=== PATIENT | female | born 1965 | race American Indian/Alaskan Native ===

== ENCOUNTER 2019-03-19 23:05 | Emergency (ER) | payer OTHER, SELFPAY ==
[2019-03-19] MEDS ORDERED: DIPRIVAN 10 MG/ML IV ONE (23:14)
[2019-03-19] MEDS ORDERED: TORADOL IV ONE (23:15)
--- NOTE | 2019-03-19 23:20 | Emergency Department Report ---
ED Lower Extremity HPI - General Chief Complaint: Extremity Injury, Lower Stated Complaint: DISLOCATED PATELLA Time Seen by Provider: 03/19/19 23:07 Source: patient, EMS (verbal report received from EMS.ems notes not available at time of chart dictation), RN notes reviewed Mode of arrival: Stretcher Limitations: Physical Limitation - History of Present Illness Initial Comments: This is a 53-year-old female who is not known to this provider previously, who presents to the emergency room with a spontaneous right-sided patellar dislocation. Apparently, her 14-year-old son was sitting on her leg, stood up, and accidentally pushed her right patellar out laterally. She has sharp pain, which increases with palpation, and it decreases with rest. Her last time of oral intake was at work around 7:00 PM. She denies other injuries. She denies other complaints. She indicates no contraindications to anesthesia. She does not smoke cigarettes. MD Complaint: knee injury -: Sudden Injury: Knee: Right Type of Injury: other Place: home Severity: severe Improves With: rest Worsens With: movement, palpation Context: other - Related Data Home Medications Medication Instructions Recorded Confirmed Last Taken Cholecalciferol (Vitamin D3) 1 tab PO DAILY 01/17/14 01/17/14 01/17/14 [Vitamin D3] Iron [Iron 18 MG TAB] 65 mg PO DAILY 01/17/14 01/17/14 01/17/14 Lisinopril [Zestril TAB] 1 tab PO DAILY 01/17/14 01/17/14 01/17/14 Lisinopril/Hydrochlorothiazide 1 tab PO DAILY 01/17/14 01/17/14 01/17/14 [Zestoretic 20-25 mg] Magnesium 250 mg PO DAILY 01/17/14 01/17/14 01/17/14 Ubidecarenone [Coq-10] 1 tab PO DAILY 01/17/14 01/17/14 01/17/14 Vitamin B Complex [B Complex # 1] 1 tab PO DAILY 01/17/14 01/17/14 01/17/14 amLODIPine [Norvasc] 10 mg PO DAILY 01/17/14 01/18/14 01/17/14 Previous Rx's Medication Instructions Recorded Last Taken Type hydroCHLOROthiazide 25 mg PO DAILY #30 tablet 01/18/14 Unknown Rx [Hydrochlorothiazide] predniSONE [Deltasone] 20 mg PO QDAY #4 tab 01/18/14 Unknown Rx Acetaminophen [Non-Aspirin Extra 500 mg PO Q6HR PRN #30 tablet 03/20/19 Unknown Rx Strength] Ibuprofen [Motrin] 600 mg PO Q8H PRN #30 tablet 03/20/19 Unknown Rx Allergies Allergy/AdvReac Type Severity Reaction Status Date / Time ampicillin Allergy Itching Verified 03/19/19 23:52 lisinopril AdvReac Angioedema Verified 01/17/14 17:55 ED Review of Systems ROS: Stated complaint: DISLOCATED PATELLA Other details as noted in HPI Constitutional: denies: fever Eyes: denies: eye discharge ENT: denies: epistaxis Respiratory: denies: cough Cardiovascular: denies: chest pain Musculoskeletal: arthralgia, myalgia Neurological: denies: numbness, paresthesias Psychiatric: anxiety ED Past Medical Hx - Past Medical History Hx Hypertension: Yes - Social History Smoking Status: Never Smoker Substance Use Type: None - Medications Home Medications: Home Medications Medication Instructions Recorded Confirmed Last Taken Type Cholecalciferol (Vitamin D3) 1 tab PO DAILY 01/17/14 01/17/14 01/17/14 History [Vitamin D3] Iron [Iron 18 MG TAB] 65 mg PO DAILY 01/17/14 01/17/14 01/17/14 History Lisinopril [Zestril TAB] 1 tab PO DAILY 01/17/14 01/17/14 01/17/14 History Lisinopril/Hydrochlorothiazide 1 tab PO DAILY 01/17/14 01/17/14 01/17/14 History [Zestoretic 20-25 mg] Magnesium 250 mg PO DAILY 01/17/14 01/17/14 01/17/14 History Ubidecarenone [Coq-10] 1 tab PO DAILY 01/17/14 01/17/14 01/17/14 History Vitamin B Complex [B Complex # 1] 1 tab PO DAILY 01/17/14 01/17/14 01/17/14 History amLODIPine [Norvasc] 10 mg PO DAILY 01/17/14 01/18/14 01/17/14 History hydroCHLOROthiazide 25 mg PO DAILY #30 tablet 01/18/14 Unknown Rx [Hydrochlorothiazide] predniSONE [Deltasone] 20 mg PO QDAY #4 tab 01/18/14 Unknown Rx Acetaminophen [Non-Aspirin Extra 500 mg PO Q6HR PRN #30 tablet 03/20/19 Unknown Rx Strength] Ibuprofen [Motrin] 600 mg PO Q8H PRN #30 tablet 03/20/19 Unknown Rx ED Physical Exam - General Limitations: Physical Limitation General appearance: alert, anxious, in distress, obese - Head Head exam: Present: atraumatic, normocephalic - Eye Eye exam: Present: normal appearance, EOMI. Absent: nystagmus - ENT ENT exam: Present: normal exam, normal orophraynx, mucous membranes moist, normal external ear exam - Neck Neck exam: Present: normal inspection, full ROM. Absent: tenderness, meningismus - Respiratory Respiratory exam: Present: normal lung sounds bilaterally. Absent: respiratory distress - Cardiovascular Cardiovascular Exam: Present: regular rate, normal rhythm, normal heart sounds. Absent: bradycardia, tachycardia, irregular rhythm, systolic murmur, diastolic murmur, rubs, gallop - GI/Abdominal GI/Abdominal exam: Present: soft. Absent: distended, tenderness, guarding, rebound, rigid, pulsatile mass - Extremities Exam Extremities exam: Present: full ROM (there is full range of motion in the bilateral upper extremities, and left lower extremity. The right lower extremity, hip range of motion intact, and foot range of motion/ankle range of motion intact. There is an obvious clinical lateral patellar dislocation), tenderness, other (2+ pulses noted in the bilateral upper, lower extremities. Compartments soft. No long bony tenderness. The pelvis is stable.). Absent: normal inspection - Back Exam Back exam: Present: normal inspection, full ROM. Absent: tenderness, CVA tenderness (R), CVA tenderness (L), paraspinal tenderness, vertebral tenderness - Neurological Exam Neurological exam: Present: alert, other (Extraocular movements intact. Tongue midline. No facial droop. Facial sensation intact to light touch in the V1, V2, V3 distribution bilaterally. 5 and 5 strength in 4 extremities.. Sensation is intact to light touch in 4 extremities.). Absent: motor sensory deficit - Psychiatric Psychiatric exam: Present: anxious - Skin Skin exam: Present: warm, dry, intact, normal color. Absent: rash ED Course Vital Signs 03/19/19 03/19/19 03/19/19 23:12 23:21 23:27 Temperature 99.2 F 99.2 F Temperature [ 99.2 F Intra-Procedure ] Temperature [ 99.2 F Post-Procedure] Temperature [ 99.2 F Pre-Procedure] Pulse Rate 68 78 Pulse Rate [ 69 Intra-Procedure ] Pulse Rate [ 66 Post-Procedure] Pulse Rate [Pre 67 -Procedure] Respiratory 20 20 20 Rate Respiratory 10 L Rate [Intra- Procedure] Respiratory 13 Rate [Post- Procedure] Respiratory 27 H Rate [Pre- Procedure] Blood Pressure 138/77 [Intra- Procedure] Blood Pressure 147/77 [Post-Procedure ] Blood Pressure 150/94 [Pre-Procedure] Blood Pressure 173/82 [Right] O2 Sat by Pulse 100 100 Oximetry O2 Sat by Pulse 100 Oximetry [ Intra-Procedure ] O2 Sat by Pulse 100 Oximetry [Post -Procedure] O2 Sat by Pulse 100 Oximetry [Pre- Procedure] 03/19/19 03/19/19 03/19/19 23:33 23:34 23:57 Temperature Temperature [ Intra-Procedure ] Temperature [ Post-Procedure] Temperature [ Pre-Procedure] Pulse Rate 70 Pulse Rate [ Intra-Procedure ] Pulse Rate [ Post-Procedure] Pulse Rate [Pre -Procedure] Respiratory 15 18 Rate Respiratory Rate [Intra- Procedure] Respiratory Rate [Post- Procedure] Respiratory Rate [Pre- Procedure] Blood Pressure [Intra- Procedure] Blood Pressure [Post-Procedure ] Blood Pressure [Pre-Procedure] Blood Pressure [Right] O2 Sat by Pulse 100 Oximetry O2 Sat by Pulse Oximetry [ Intra-Procedure ] O2 Sat by Pulse Oximetry [Post -Procedure] O2 Sat by Pulse Oximetry [Pre- Procedure] - Reevaluation(s) Reevaluation #1: 03/19/19 23:19 Differential diagnosis, including but not limited to: Patellar dislocation Assessment and plan: 53-year-old female with clinical patellar dislocation after her young son stood up, and inadvertently dislocated the patella. Extensive discussion had with patient. She has given verbal and written consent for moderate sedation with closed reduction of patellar fracture. She will be given ketorolac for pain. We will perform a propofol sedation. We will then obtain postprocedural x-rays, and right lower extremity knee immobilizer will be applied. Reevaluation #2: 03/19/19 23:58 Patient tolerated reduction well. Postreduction x-rays demonstrated appropriate reduction. Patient states pain is improved. Knee immobilizer is applied. Post-procedurally, the patient remains neurovascularly intact. - Moderate Sedation Indications: fracture/dislocation redu Presedation Evaluation: Please see history of present illness. Estimated time of last oral intake is 7:00 PM on 03/19/2019. ASA Class: II Mallampati Airway Score: 2 Preparation: groundwater monitoring technician applied, pulse oximeter, capnometry used, supplemental O2 applied, reversal agents at bedside, suction/airway equipment at bedside IV Propofol Dose (mgs): 100 Complications: none Patient Tolerated Procedure: well - Orthopedic Joint Reduction Joint #1 Consent Obtained: verbal consent, written consent, emergent situation Time Out Performed: Yes Side: right Joint Reduction Location: knee/patella Analgesia: moderate sedation Technique Used: direct manipulation Post-Reduction Neuro Exam: intact Post-Reduction Vascular Exam: intact Post Reduction X-Ray Obtained: Yes Post Reduction X-Ray Results: reduced Splint Applied: Yes Patient Tolerated Procedure: well - Orthopedic Splinting/Casting Injury #1 Side: right Lower Extremity Injury Location: knee Lower Extremity Immobilizer: knee immobilizer Other Orthopedic Equipment: crutches ED Lower Extremity MDM - Lab Data Vital Signs 03/19/19 03/19/19 03/19/19 23:12 23:21 23:27 Temperature 99.2 F 99.2 F Temperature [ 99.2 F Intra-Procedure ] Temperature [ 99.2 F Post-Procedure] Temperature [ 99.2 F Pre-Procedure] Pulse Rate 68 78 Pulse Rate [ 69 Intra-Procedure ] Pulse Rate [ 66 Post-Procedure] Pulse Rate [Pre 67 -Procedure] Respiratory 20 20 20 Rate Respiratory 10 L Rate [Intra- Procedure] Respiratory 13 Rate [Post- Procedure] Respiratory 27 H Rate [Pre- Procedure] Blood Pressure 138/77 [Intra- Procedure] Blood Pressure 147/77 [Post-Procedure ] Blood Pressure 150/94 [Pre-Procedure] Blood Pressure 173/82 [Right] O2 Sat by Pulse 100 100 Oximetry O2 Sat by Pulse 100 Oximetry [ Intra-Procedure ] O2 Sat by Pulse 100 Oximetry [Post -Procedure] O2 Sat by Pulse 100 Oximetry [Pre- Procedure] 03/19/19 03/19/19 03/19/19 23:33 23:34 23:57 Temperature Temperature [ Intra-Procedure ] Temperature [ Post-Procedure] Temperature [ Pre-Procedure] Pulse Rate 70 Pulse Rate [ Intra-Procedure ] Pulse Rate [ Post-Procedure] Pulse Rate [Pre -Procedure] Respiratory 15 18 Rate Respiratory Rate [Intra- Procedure] Respiratory Rate [Post- Procedure] Respiratory Rate [Pre- Procedure] Blood Pressure [Intra- Procedure] Blood Pressure [Post-Procedure ] Blood Pressure [Pre-Procedure] Blood Pressure [Right] O2 Sat by Pulse 100 Oximetry O2 Sat by Pulse Oximetry [ Intra-Procedure ] O2 Sat by Pulse Oximetry [Post -Procedure] O2 Sat by Pulse Oximetry [Pre- Procedure] - Radiology Data Radiology results: report reviewed, image reviewed interpreted by me: Postreduction x-ray demonstrates anatomic alignment of the patella, knee immobilizer noted, no obvious fracture or dislocation. [facility] [address] [place] [address] XRay Report Signed Patient: HOMERO HLAL MR#: [id number] : 1965 Acct:[id number] Age/Sex: 53 / F ADM Date: 03/19/19 Loc: ED Attending Dr: Ordering Physician: BUDDY YEAGER MD Date of Service: 03/19/19 Procedure(s): XR knee 3V RT Accession Number(s): [id number] cc: BUDDY YEAGER MD Fluoro Time In Minutes: PROCEDURE: XR KNEE 3V RT TECHNIQUE: Right knee radiographs, AP, lateral, and sunrise views. HISTORY: patellar reduction COMPARISONS: None FINDINGS: Fracture (s) and/or Dislocation(s): None Alignment: Normal Joint space(s): Normal Soft tissues: Normal Bone mineralization: Normal Foreign bodies: None IMPRESSION: Normal Examination This document is electronically signed by Jose Tijerina MD., Mar 20 2019 12:13:47 AM ET Transcribed By: CO Dictated By: JOSE TIJERINA MD Electronically Authenticated By: JOSE TIJERINA MD Signed Date/Time: 03/20/19 0017 Critical care attestation.: If time is entered above; I have spent that time in minutes in the direct care of this critically ill patient, excluding procedure time. ED Disposition Clinical Impression: Patellar dislocation Disposition: DC-01 TO HOME OR SELFCARE Is pt being admited?: No Does the pt Need Aspirin: No Condition: Good Instructions: Moderate Sedation (ED), Patellar Dislocation (ED) Additional Instructions: Rest, avoid heavy lifting, and avoid strenuous physical activity. Did not consume alcohol for the next 48 hours. Weightbearing as tolerated on the right lower extremity. Follow-up with an orthopedist within the next 5-7 days. Return to the emergency room right away with new pain, worsened pain, migration of pain, projectile vomiting, change in mental status, confusion, inability to tolerate liquid feeds, new, worsening or different symptoms. After the dislocation, patient may have torn or ruptured some ligamentous and/or connective tissue. She may require physical therapy and rehabilitation. Therefore, it is very important to follow-up with an orthopedic physician, or sports medicine physician as recommended, to exclude soft tissue injury. Not following up as recommended may result in undiagnosed soft tissue ligamentous injury, which over time may cause disability, loss of quality of life, decreased range of motion. Prescriptions: Ibuprofen [Motrin] 600 mg PO Q8H PRN #30 tablet PRN Reason: Pain Acetaminophen [Non-Aspirin Extra Strength] 500 mg PO Q6HR PRN #30 tablet PRN Reason: Pain , Severe (7-10) Referrals: EDWARD RODRIGUEZ [Other] - 3-5 Days SHEMAR HERNANDEZ MD [Staff Physician] - 3-5 Days [facility] [Provider Group] - 3-5 Days
--- NOTE | 2019-03-20 00:17 | XRay Report ---
PROCEDURE: XR KNEE 3V RT TECHNIQUE: Right knee radiographs, AP, lateral, and sunrise views. HISTORY: patellar reduction COMPARISONS: None FINDINGS: Fracture (s) and/or Dislocation(s): None Alignment: Normal Joint space(s): Normal Soft tissues: Normal Bone mineralization: Normal Foreign bodies: None IMPRESSION: Normal Examination This document is electronically signed by Jose Douglass MD., Mar 20 2019 12:13:47 AM ET
[2019-03-20 01:20] VITALS: BP 137/64
== END 2019-03-20 01:00 | disposition home or self-care (01) ==
LOC: ED 23:05
DX: S83.004A Unspecified dislocation of right patella, initial encounter (principal); I10 Essential (primary) hypertension; Z79.899 Other long term (current) drug therapy; Z88.6 Allergy status to analgesic agent; Z88.1 Allergy status to other antibiotic agents; X58.XXXA Exposure to other specified factors, initial encounter; Y93.89 Activity, other specified; Y92.019 Unspecified place in single-family (private) house as the place of occurrence of the external cause; Y99.8 Other external cause status
CPT/HCPCS: 27560; 73562; 94760; 96374; 99284; J1885; J2704; 96375